=== PATIENT | female | born 2000 | race African-American/Black ===

== ENCOUNTER 2024-03-31 13:59 | Emergency (ER) | payer MEDICAID ==
[~2024-03-31] VITALS: Ht 165.1 cm; Wt 59.0 kg
[2024-03-31 14:06] VITALS: TEMP 98.3; O2SAT 100
[2024-03-31] MEDS ORDERED: IBUPROFEN 600MG TABLET PO ONE (14:45)
[2024-03-31] MEDS: IBUPROFEN 600MG TABLET PO NR (17:04)
[2024-03-31] MEDS ORDERED: ACET325T52 MT (17:58)
[2024-03-31 18:02] VITALS: BP 112/64; PULSE 76; RESP 16; O2SAT 99
== END 2024-03-31 18:05 | disposition home or self-care (01) ==
LOC: ER 14:18
DX: M79.602 Pain in left arm (principal); V29.99XA Rider (driver) (passenger) of other motorcycle injured in unspecified traffic accident, initial encounter; Y93.89 Activity, other specified; Y92.89 Other specified places as the place of occurrence of the external cause; Y99.8 Other external cause status
CPT/HCPCS: 71045; 73060; 99284